=== PATIENT | female | born 2000 | race Caucasian/White ===

== ENCOUNTER 2024-02-12 11:44 | Emergency (ER) | payer OTHER ==
[~2024-02-12] VITALS: Ht 165.1 cm; Wt 68.1 kg
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
[2024-02-12] MEDS ORDERED: NAPR-746 PO (13:24)
[2024-02-12 13:25] VITALS: BP 117/79; PULSE 82; RESP 18; TEMP 97.9; O2SAT 99
== END 2024-02-12 13:39 | disposition home or self-care (01) ==
LOC: EDBD 11:44 → ER 11:44
DX: S76.011A Strain of muscle, fascia and tendon of right hip, initial encounter (principal); V49.88XA Car occupant (driver) (passenger) injured in other specified transport accidents, initial encounter; Y93.89 Activity, other specified; Y92.89 Other specified places as the place of occurrence of the external cause; Y99.8 Other external cause status
CPT/HCPCS: 73502